=== PATIENT | female | born 1985 | race Caucasian/White ===

== ENCOUNTER 2017-03-17 16:23 | Emergency (ER) | payer OTHER ==
--- NOTE | ~2017-03-17 | CR243 ---
[facility] A Service of [facility] RADIOLOGY TEXT RESULTS PATIENT: ANNABEL VITALE LOCATION: SED : 89 UNIT #: [id number] AGE: [address]: NEYMAR BUSTILLO SEX: F ORDER DR: [id number] [address] [address] [id number] E MR#: [id number] Acc #: [id number] NAME: ANNABEL VITALE : 1985 SEX: F STUDY DATE/TIME: 03/17/2017 18:03 UNIT: SED ROOM: STUDY DESCRIPTION: CR Thoracic Spine 3 Views Attending Physician: Neymar Bustillo Ordering Physician: Neymar Bustillo (Res) Primary Care Physician: Eder Melendez M.D. MEDICAL IMAGING REPORT This report is preliminary unless electronic signature is present. EXAM Three views of the thoracic spine. DATE 03/17/2017 HISTORY Chronic back pain, with upper back pain since yesterday. COMPARISON Thoracic spine radiographs 08/19/2008. FINDINGS There is very mild levoscoliosis of the lower thoracic spine, 6.6 degrees, centered at T9. There is very mild diminished disc height with endplate sclerosis at T6-7 and T7-8, which appears new or more prominent than on the 2007 study. However, no acute thoracic vertebral body fracture or subluxation is identified. There is also mild anterior osteophyte formation at T11-12. IMPRESSION 1. No acute thoracic vertebral body fracture or subluxation is seen. There is mild diminished disc height at T6-7 and T7-8 with mild endplate sclerosis and anterior osteophyte formation. Mild anterior osteophyte formation at T11-12. These findings appear relatively new compared to the 08/19/2008 examination. 2. Mild lower thoracic dextroscoliosis. Dictated by... Karolina Bal M.D. [facility] A Service of [facility] RADIOLOGY TEXT RESULTS PATIENT: ANNABEL VITALE LOCATION: SED : 89 UNIT #: [id number] AGE: [address]: NEYMAR BUSTILLO SEX: F ORDER DR: THIS IS AN ELECTRONICALLY VERIFIED REPORT Karolina Bal M.D. at 03/18/2017 10:02 AM JIE/margo TD: 03/17/2017 21:33 JOB #: [id number] MEDICAL IMAGING REPORT Page 1 of 1
[~2017-03-17 16:23] MED LIST: AUGMENTIN875 MG PO; CIPRO PO; CIPROFLOXACIN500 M1 PO; FAMOTIDINE PO; FLEXERIL PO; FLEXERIL10 MG PO; IBUPROFEN800 MG PO; KEFLEX250 M2 PO; KEFLEX500 MG PO; LORTAB 7.5-5001 TAB PO; LORTAB 7.51 TAB 7.5/ PO; NO MEDICATIONS; NYSTATIN15 GM OINT TOP; PERCOCET5/325 PO; PHENERGAN PO; PHENERGAN25 MG PO; PRENATAL1 TA1 PO; ZOFRAN ODT4 MG PO; ZOFRAN PO
== END 2017-03-17 18:55 | disposition home or self-care (01) ==
LOC: SED 16:23
DX: H66.92 Otitis media, unspecified, left ear (principal); J32.0 Chronic maxillary sinusitis; K11.20 Sialoadenitis, unspecified; M54.6 Pain in thoracic spine; F17.210 Nicotine dependence, cigarettes, uncomplicated; Z87.442 Personal history of urinary calculi
CPT/HCPCS: 72072; 84703; 96372; 99283; J1885

== ENCOUNTER 2017-06-01 16:36 | Emergency (ER) | payer OTHER ==
--- NOTE | ~2017-06-01 | CR63 ---
[facility] A Service of [facility] RADIOLOGY TEXT RESULTS PATIENT: ANNABEL VITALE LOCATION: SED : 89 UNIT #: [id number] AGE: [address]: James Lara MD SEX: F ORDER DR: [id number] [place] [id number] E MR#: [id number] Acc #: [id number] NAME: ANNABEL VITALE : 1985 SEX: F STUDY DATE/TIME: 06/01/2017 16:58 UNIT: SED ROOM: STUDY DESCRIPTION: CR Chest 2 View Attending Physician: James Lara M.D. Ordering Physician: James Lara M.D. Primary Care Physician: Eder Melendez M.D. MEDICAL IMAGING REPORT This report is preliminary unless electronic signature is present. EXAM Chest, 2 views HISTORY Chest pain radiating to the neck and left shoulder beginning 1 hour prior to arrival. TECHNIQUE Two views of the chest were obtained. FINDINGS PA and lateral examination of the chest upright shows a good expansion of the parenchyma with a normal distribution of the pulmonary vascularity. There is no indication of congestion, effusion, infiltrate, tumor, or nodular density. The pleural reflections and diaphragmatic contours are normal. The cardiac silhouette and mediastinal anatomy is within normal limits. IMPRESSION Normal chest. Dictated by... Rolando Bermudez M.D. THIS IS AN ELECTRONICALLY VERIFIED REPORT Rolando Bermudez M.D. at 06/04/2017 7:03 AM TYREEF/cookie TD: 06/02/2017 08:38 JOB #: [id number] MEDICAL IMAGING REPORT [facility] A Service [facility] RADIOLOGY TEXT RESULTS PATIENT: ANNABEL VITALE LOCATION: SED : [birth year] UNIT #: [id number] AGE: [address]: James Lara MD SEX: F ORDER DR: Page 1 of 1
--- NOTE | ~2017-06-01 | EKG ---
PATIENT: ANNABEL VITALE UNIT #: [id number] Ventricular Rate: 77 BPM Atrial Rate: 77 BPM P-R Interval: 132 ms QRS Duration: 88 ms Q-T Interval: 396 ms QTC Calculation(Bezet): 448 ms P Montgomery: 70 degrees Calculated R Montgomery: 42 degrees Calculated T Montgomery: 44 degrees Diagnosis Line: Normal sinus rhythm Diagnosis Line: Normal ECG Diagnosis Line: No previous ECGs available Diagnosis Line: Confirmed by VIDAL VALDOVINOS MD ([id number]) on 06/02/2017 Diagnosis Line: 7:34:46 PM INTERPRETING MD: BONIFACIO DELGADO
== END 2017-06-01 18:12 | disposition home or self-care (01) ==
LOC: SED 16:36
DX: M94.0 Chondrocostal junction syndrome [Tietze] (principal); F17.200 Nicotine dependence, unspecified, uncomplicated; Z98.51 Tubal ligation status; Z87.442 Personal history of urinary calculi
CPT/HCPCS: 71020; 93005; 99285